=== PATIENT | female | born 1965 | race African-American/Black ===

== ENCOUNTER 2017-04-25 11:11 | Emergency (ER) | payer OTHER ==
[~2017-04-25] VITALS: Ht 165.1 cm; Wt 61.2 kg
[~2017-04-25 11:11] MED LIST: ACETAMINOPHEN-1 EAC1 ORAL; ALBUTEROL2.5 MG/3 M INH; BACITRACIN1 EACH TOPIC; BACLOFEN10 MG ORAL; FLAGYL500 MG ORAL; FLEXERIL5 MG ORAL; HYDROCODON-ACE1 EA15 ORAL; IBUPROFEN600 MG PO; KEFLEX500 MG ORAL; METRONIDAZOLE500 MG ORAL; NKM; NORCO 5-325 TA1 EACH ORAL; NORCO 5/3251 TAB ORAL; NORCO1 EA ORAL; TOPIRAMATE25 MG ORAL; VICODIN 5-5001 EACH PO
[2017-04-25 11:21] VITALS: BP 129/87
[2017-04-25] MEDS ORDERED: DEXAMETHASONE RIGHT EYE (11:38)
[2017-04-25] MEDS ORDERED: KEFLEX500 MG ORAL (11:38)
[2017-04-25] MEDS ORDERED: BACTRIM DS TAB1 EAC1 ORAL (11:38)
[2017-04-25] MEDS ORDERED: TOBRAMYCIN RIGHT EYE (11:38)
[2017-04-25 12:03] VITALS: BP 129/87
--- NOTE | 2017-04-25 14:37 | Emergency Room Report ---
History of Present Illness General Chief Complaint: General Complaint Source: Patient Present Illness HPI Patient presents emergency department today complaining of right eyelid pain and swelling and redness. Symptoms have been going on for 3-4 days. Patient states that she was using a hot compress but it did not seem to work. She is able to get into her primary care physician or sweats came here for further evaluation. She denies any visual changes. Denies any other trauma or any other complaints. Patient does not have any prior episodes.No other modifying factors. No other associated signs and symptoms. No other complaints were noted. Allergies: Uncoded Allergies: peanuts (Allergy, Mild, 07/02/13) Patient History Past Medical History: none Past Surgical History: none Pertinent Family History: none Social History: Reports: smoking Now: No : 2 Para: 1 Reviewed Nursing Documentation: PMH: Agreed, PSxH: Agreed Nursing Documentation-PMH Past Medical History: No History, Except For Hx Hypertension: No Hx Pacemaker: No Hx Asthma: No Hx COPD: No Hx Diabetes: No Hx Cancer: No Hx Gastrointestinal Problems: No - Herniorrhapy in 2007 Hx Dialysis: No Hx Cerebrovascular Accident: No Hx Seizures: No Review of Systems All Other Systems: negative except mentioned in HPI Physical Exam Vital Signs Date Time Temp Pulse Resp B/P Pulse Ox O2 Delivery O2 Flow Rate FiO2 04/25/17 11:21 98.1 75 16 129/87 100 Room Air Sp02 EP Interpretation: reviewed, normal General Appearance: normal inspection, well appearing, no apparent distress, alert Head: atraumatic Eyes: bilateral eye other - Right eyelid stye and erythema ENT: normal ENT inspection, hearing grossly normal, normal voice Neck: normal inspection, full range of motion, supple, no bony tend Respiratory: normal inspection, lungs clear, normal breath sounds, no respiratory distress, no retraction, no wheezing Cardiovascular #1: regular rate, rhythm, no edema Gastrointestinal: normal inspection, normal bowel sounds, non tender, soft, no guarding, no hernia Genitourinary: no CVA tenderness Musculoskeletal: normal inspection, back normal, normal range of motion Neurologic: normal inspection, alert, responsive, speech normal Psychiatric: normal inspection, judgement/insight normal, mood/affect normal Skin: normal inspection, normal color, no rash Medical Decision Making Diagnostic Impression: Primary Impression: Blepharitis of right upper eyelid Qualified Codes: H01.001 - Unspecified blepharitis right upper eyelid Additional Impression: Coty Qualified Codes: H00.011 - Hordeolum externum right upper eyelid ER Course Patient presents emergency department today complaining of right eye redness. Differential considerations include abscess, cellulitis, stye, and hepatitis. Patient exam is consistent with likely an infected stye. I felt the patient would benefit from continued warm compresses. Patient was given a prescription for topical tobramycin as well as oral Bactrim and Keflex. Recommend close outpatient followup and follow with ophthalmology.Patient is advised to follow up with primary doctor in 2-3 days and return the emergency room for any worsening symptoms and as needed. Last Vital Signs Date Time Temp Pulse Resp B/P Pulse Ox O2 Delivery O2 Flow Rate FiO2 04/25/17 12:03 98.1 16 129/87 100 Room Air 04/25/17 11:21 75 Status: improved Disposition: HOME, SELF-CARE Condition: Stable Scripts Cephalexin* (KEFLEX*) 500 Mg Capsule 500 MG ORAL Q6H, #28 CAP 0 Refills Prov: KADEN JIMENEZ M.D. 04/25/17 Trimethoprim/Sulfamethoxazole 160/800* (BACTRIM DS TABLET*) 1 Each Tablet 1 TAB ORAL Q12H, #14 TAB 0 Refills Prov: KADEN JIMENEZ M.D. 04/25/17 Tobramycin/Dexamethasone (Tobradex Eye Ointment) 3.5 Gm Oint...g. 1 APPLIC RIGHT EYE Q4HR for 7 Days, APPLIC Prov: KADEN JIMENEZ M.D. 04/25/17 Referrals: [facility] (PCP) Patient Instructions: Blepharitis, [id number], KADEN Delgadillo M.D. Apr 25, 2017 14:37
== END 2017-04-25 12:06 | disposition home or self-care (01) ==
LOC: EMR 11:36
DX: H01.001 Unspecified blepharitis right upper eyelid (principal); H00.011 Hordeolum externum right upper eyelid; F17.200 Nicotine dependence, unspecified, uncomplicated
CPT/HCPCS: 99284

== ENCOUNTER 2018-05-09 23:48 | Emergency (ER) | payer OTHER ==
[~2018-05-09] VITALS: Ht 162.6 cm; Wt 65.3 kg
[~2018-05-09 23:48] MED LIST changes: +BACTRIM DS TAB1 EAC1 ORAL; +DEXAMETHASONE RIGHT EYE; +TOBRAMYCIN RIGHT EYE
[2018-05-10] MEDS ORDERED: ADDERALL 10 MG10 MG ORAL (00:05)
[2018-05-10] MEDS ORDERED: ABILIFY2 MG ORAL (00:05)
[2018-05-10] MEDS ORDERED: ATIVAN1 MG ORAL (00:05)
[2018-05-10] MEDS ORDERED: Morphine Sulfate 10mg/ml Inj IV ONE (00:15)
[2018-05-10 00:57] LABS: APPEARANCE,URINE CLEAR; BILIRUBIN, URINE NEGATIVE (NEGATIVE); COLOR,URINE PALE YELLOW; GLUCOSE, URINE (UA) NEGATIVE (NEGATIVE); KETONES,URINE NEGATIVE (NEGATIVE); LEUKOCYTE ESTERASE ,URINE NEGATIVE (NEGATIVE); NITRITE,URINE NEGATIVE (NEGATIVE); PH,URINE 8 (4.5-8.0); PROTEIN,URINE NEGATIVE (NEGATIVE); UROBILINOGEN,URINE NORMAL MG/DL (0.0-1.0)
--- NOTE | 2018-05-10 01:16 | Emergency Room Report ---
History of Present Illness General Chief Complaint: Lower Back Pain or Injury Source: Patient, Medical Record, EMS Present Illness HPI This is a 53-year-old female with a history chronic back pain. She takes Soma and Garland for it. She presents with chief complaint of lower back pain. Onset for last couple days. Hard time walking. Pain is sharp in nature. No radiation. No trauma. Similar symptom in the past. No incontinence of bowel or urine. No fever or chills. No numbness. Worse with walking. Better with rest. Pain is 10 out of 10. Allergies: Uncoded Allergies: peanuts (Allergy, Mild, 07/02/13) Patient History Past Medical History: see triage record, old chart reviewed Past Surgical History: other Pertinent Family History: none Social History: Denies: smoking Now: No : 1 Para: 1 Immunizations: other Reviewed Nursing Documentation: PMH: Agreed; PSxH: Agreed Nursing Documentation-PMH Hx Hypertension: No Hx Pacemaker: No Hx Asthma: No Hx COPD: No Hx Diabetes: No Hx Cancer: No Hx Gastrointestinal Problems: No - Herniorrhapy in 2007 Hx Dialysis: No History Of Psychiatric Problem: Yes - bipolar Hx Cerebrovascular Accident: No Hx Seizures: No Review of Systems Eye: Denies: eye pain, blurred vision ENT: Denies: ear pain, nose congestion, throat swelling Respiratory: Denies: cough, shortness of breath Cardiovascular: Denies: chest pain, palpitations Gastrointestinal: Denies: abdominal pain, diarrhea, nausea, vomiting Musculoskeletal: Reports: back pain; Denies: joint pain Skin: Denies: rash Neurological: Denies: headache, numbness Endocrine: Denies: increased thirst, increased urine Hematologic/Lymphatic: Denies: easy bruising All Other Systems: negative except mentioned in HPI Physical Exam Vital Signs Date Time Temp Pulse Resp B/P (MAP) Pulse Ox O2 Delivery O2 Flow Rate FiO2 05/10/18 00:01 98.1 108 24 126/83 100 Room Air 98.1 vitals unremarkable Sp02 EP Interpretation: reviewed, normal General Appearance: well appearing, no apparent distress, alert Head: normocephalic, atraumatic Eyes: bilateral eye PERRL, bilateral eye EOMI ENT: hearing grossly normal, normal pharynx Neck: full range of motion, supple, no meningismus Respiratory: chest non-tender, lungs clear, normal breath sounds Cardiovascular #1: regular rate, rhythm, no murmur Gastrointestinal: normal bowel sounds, non tender, no mass, no organomegaly, no bruit, non-distended Musculoskeletal: back normal - pain to the lower lumbar area. No anesthesia. No percussive tenderness., gait/station normal, normal range of motion Psychiatric: mood/affect normal Skin: warm/dry Medical Decision Making Diagnostic Impression: Primary Impression: Low back pain Qualified Codes: M54.5 - Low back pain ER Course Patient present with exacerbation of chronic lower back pain. No trauma. No evidence of cauda equina syndrome, spinal epidural abscess or neoplastic process. Pain is well-controlled now after morphine. We'll discharge home. No evidence of infection. Last Vital Signs Date Time Temp Pulse Resp B/P (MAP) Pulse Ox O2 Delivery O2 Flow Rate FiO2 05/10/18 00:58 98.1 05/10/18 00:01 108 24 126/83 100 Room Air Status: improved Disposition: HOME, SELF-CARE Condition: Stable Referrals: [facility] (PCP) Patient Instructions: Back Pain, Adult Additional Instructions: Take your pain medication. Follow-up with your doctor in 7 days. Return if symptom worsen. FRANCIA COVARRUBIAS M.D. May 10, 2018 01:16
[2018-05-10 01:29] VITALS: BP 106/78
[2018-05-10 01:30] VITALS: BP 106/78
== END 2018-05-10 01:30 | disposition home or self-care (01) ==
LOC: EDBD 23:48 → EMR 23:59
DX: G89.29 Other chronic pain (principal); M54.5 Low back pain; Z91.010 Allergy to peanuts; F31.9 Bipolar disorder, unspecified
CPT/HCPCS: 80307; 81003; 96374; 99283; J2270

== ENCOUNTER 2018-08-03 00:33 | Emergency (ER) | payer OTHER ==
[~2018-08-03] VITALS: Ht 165.1 cm; Wt 64.4 kg
[~2018-08-03 00:33] MED LIST changes: +ABILIFY2 MG ORAL; +ADDERALL 10 MG10 MG ORAL; +ATIVAN1 MG ORAL
[2018-08-03] MEDS ORDERED: PHENAZOPYRIDIN200 MG ORAL (00:44)
[2018-08-03] MEDS ORDERED: CEPHALEXIN500 MG ORAL (00:44)
--- NOTE | 2018-08-03 00:44 | Emergency Room Report ---
History of Present Illness General Chief Complaint: Female Urogenital Problems Source: Patient Present Illness HPI This is a 53-year-old female with a history of chronic back pain. She presents with chief complaint of dysuria, frequency and urgency. Onset for last week. Tonight much more severe. Painful with urination. She has gone to the restroom numerous times. She called 911. Pain is 10 out of 10. Worse with urination. No radiation. No back pain. Allergies: Uncoded Allergies: peanuts (Allergy, Mild, 07/02/13) Patient History Past Medical History: see triage record, old chart reviewed Past Surgical History: other Pertinent Family History: none Social History: Denies: smoking Last Menstrual Period: unk Now: No Immunizations: other Reviewed Nursing Documentation: PMH: Agreed; PSxH: Agreed Nursing Documentation-PMH Past Medical History: No History, Except For Hx Hypertension: No Hx Pacemaker: No Hx Asthma: No Hx COPD: No Hx Diabetes: No Hx Cancer: No Hx Gastrointestinal Problems: No - Herniorrhapy in 2007 Hx Dialysis: No Hx Cerebrovascular Accident: No Hx Seizures: No Review of Systems Eye: Denies: eye pain, blurred vision ENT: Denies: ear pain, nose congestion, throat swelling Respiratory: Denies: cough, shortness of breath Cardiovascular: Denies: chest pain, palpitations Gastrointestinal: Denies: abdominal pain, diarrhea, nausea, vomiting Genitourinary: Reports: dysuria, frequency, pain, urgency Musculoskeletal: Denies: back pain, joint pain Skin: Denies: rash Neurological: Denies: headache, numbness Endocrine: Denies: increased thirst, increased urine Hematologic/Lymphatic: Denies: easy bruising All Other Systems: negative except mentioned in HPI Physical Exam Vital Signs Date Time Temp Pulse Resp B/P (MAP) Pulse Ox O2 Delivery O2 Flow Rate FiO2 08/03/18 00:34 98.1 100 16 157/96 100 Room Air 98.1 vitals normal except for high blood pressure Sp02 EP Interpretation: reviewed, normal General Appearance: well appearing, no apparent distress, alert Head: normocephalic, atraumatic Eyes: bilateral eye PERRL, bilateral eye EOMI ENT: hearing grossly normal, normal pharynx Neck: full range of motion, supple, no meningismus Respiratory: chest non-tender, lungs clear, normal breath sounds Cardiovascular #1: regular rate, rhythm, no murmur Gastrointestinal: normal bowel sounds, non tender, no mass, no organomegaly, no bruit, non-distended Musculoskeletal: back normal, gait/station normal, normal range of motion Psychiatric: mood/affect normal Skin: warm/dry Medical Decision Making Diagnostic Impression: Primary Impression: UTI (urinary tract infection) Qualified Codes: N30.00 - Acute cystitis without hematuria ER Course Patient with symptoms consistent with cystitis last UTI. No evidence of any sepsis or pyelonephritis. We'll discharge home. Last Vital Signs Date Time Temp Pulse Resp B/P (MAP) Pulse Ox O2 Delivery O2 Flow Rate FiO2 08/03/18 00:34 98.1 100 16 157/96 100 Room Air 98.1 Status: improved Disposition: HOME, SELF-CARE Condition: Stable Scripts Phenazopyridine Hcl* (PYRIDIUM*) 200 Mg Tablet 200 MG ORAL THREE TIMES A DAY, #6 TAB 0 Refills Prov: FRANCIA COVARRUBIAS M.D. 08/03/18 Cephalexin* (KEFLEX*) 500 Mg Capsule 500 MG ORAL TID, #21 CAP Prov: FRANCIA COVARRUBIAS M.D. 08/03/18 Patient Instructions: Urinary Tract Infection Additional Instructions: Follow-up with your DrCelso in 2-3 days for recheck. Return if worse. FRANCIA COVARRUBIAS M.D. Aug 03, 2018 00:44
[2018-08-03] MEDS ORDERED: Cephalexin 500mg cap ORAL ONE (00:45)
[2018-08-03] MEDS ORDERED: Norco 5mg/325mg tab ORAL ONE (00:45)
[2018-08-03] MEDS ORDERED: Phenazopyridine 200mg tab ORAL ONE (00:45)
[2018-08-03 00:55] VITALS: BP 142/94
[2018-08-03 01:00] LABS: APPEARANCE,URINE CLEAR; BILIRUBIN, URINE NEGATIVE (NEGATIVE); COLOR,URINE PALE YELLOW; GLUCOSE, URINE (UA) NEGATIVE (NEGATIVE); KETONES,URINE NEGATIVE (NEGATIVE); LEUKOCYTE ESTERASE ,URINE NEGATIVE (NEGATIVE); NITRITE,URINE NEGATIVE (NEGATIVE); PH,URINE 8 (4.5-8.0); PROTEIN,URINE NEGATIVE (NEGATIVE); UROBILINOGEN,URINE NORMAL MG/DL (0.0-1.0)
[2018-08-03 01:08] VITALS: BP 142/94
== END 2018-08-03 01:12 | disposition home or self-care (01) ==
LOC: EDUNIT# 00:33 → EDBD 00:33 → EMR 01:03
DX: N39.0 Urinary tract infection, site not specified (principal)
CPT/HCPCS: 81003; 99283

== ENCOUNTER 2018-09-09 13:02 | Emergency (ER) | payer OTHER ==
[~2018-09-09] VITALS: Ht 162.6 cm; Wt 65.8 kg
[~2018-09-09 13:02] MED LIST changes: +CEPHALEXIN500 MG ORAL; +PHENAZOPYRIDIN200 MG ORAL
[2018-09-09] MEDS ORDERED: AUGMENTIN 875-1 EAC1 ORAL (13:26)
[2018-09-09] MEDS ORDERED: TRAMADOL HCL50 MG ORAL (13:26)
--- NOTE | 2018-09-09 13:26 | Emergency Room Report ---
History of Present Illness General Chief Complaint: Toothache Source: Patient Present Illness HPI 53-year-old female patient presents ER complaining of toothache for the past 2 days. Patient reports "I think I have an abscess". Patient reports she was unable see a dentist because she has Medi-Kavin. Denies fever, chest pain, shortness of breath. Reports pain and swelling of her right side of lower gum and cheek. Denies drainage. Denies bleeding. Allergies: Uncoded Allergies: peanuts (Allergy, Mild, 07/02/13) Patient History Past Medical History: see triage record Reviewed Nursing Documentation: PMH: Agreed; PSxH: Agreed Nursing Documentation-PMH Past Medical History: No History, Except For Hx Hypertension: No Hx Pacemaker: No Hx Asthma: No Hx COPD: No Hx Diabetes: No Hx Cancer: No Hx Gastrointestinal Problems: No - Herniorrhapy in 2007 Hx Dialysis: No Hx Cerebrovascular Accident: No Hx Seizures: No Review of Systems All Other Systems: negative except mentioned in HPI Physical Exam Vital Signs Date Time Temp Pulse Resp B/P (MAP) Pulse Ox O2 Delivery O2 Flow Rate FiO2 09/09/18 13:07 98.1 86 18 139/89 98 Room Air Sp02 EP Interpretation: reviewed, normal General Appearance: well appearing, no apparent distress, alert, GCS 15, non- toxic Head: normocephalic, atraumatic, other - swelling noted over the right lower cheek and jaw Eyes: bilateral eye normal inspection, bilateral eye PERRL ENT: hearing grossly normal, normal pharynx, no angioedema, normal voice, TMs + canals normal, uvula midline, moist mucus membranes, other - right lower gum: erythema and edema, no fluctuance or induration, no palpable mass, tooth tender to palpation, decaying tooth noted Neck: full range of motion Respiratory: lungs clear, normal breath sounds, no rhonchi, no respiratory distress, no accessory muscle use, no wheezing, speaking full sentences Cardiovascular #1: regular rate, rhythm, no edema Musculoskeletal: back normal, digits/nails normal, gait/station normal, normal range of motion, non-tender Neurologic: alert, oriented x3, responsive, motor strength/tone normal, sensory intact Psychiatric: mood/affect normal Skin: no rash Medical Decision Making PA Attestation Dr. Alvarado is my supervising Physician whom patient management has been discussed with. Diagnostic Impression: Primary Impression: Tooth infection ER Course Pt. presents to the ED c/o dental pain. Ddx considered but are not limited to cellulitis, abscess, dental caries, gingivitis. Does not require imaging at this time. Vital signs: are WNL, pt. is afebrile ED INTERVENTIONS: Pain medication provided in the ER. erythema and edema noted, likely dental infection, will provide patient with antibiotics and pain medication. Nontoxic appearing, speaking full sentences, no active draining, mild edema, no trismus or vision changes. No signs of abscess, no fluctuance or induration. follow-up with dentist. vital contact information for free and low-cost dentists. Instructed patient to follow today. Patient states that "I will". Will provide abx for infection to cover for possible infection. provided with contact information for dentists. F/u with PCP and dentist for further treatment in 1-2 days. Apply ice for pain and swelling symptoms. DISCHARGE: -Rx provided for Augmentin -Rx provided for Ultram, CURES reviewed At this time pt. is stable for d/c to home. Patient is resting comfortably, in no acute distress, nontoxic appearing, talking and smiling without difficulty. Will provide printed patient care instructions and any necessary prescriptions. Care plan and follow up instructions have been discussed with the patient prior to discharge. Patient instructed to follow-up with primary care provider in 2 - 3 days. Followup with dentist. Patient questions asked and answered. Patient reports understanding and agreement to treatment plan. ER precautions given. Patient instructed to return to ER immediately for any new or worsening of symptoms including but not limited to fever, worsening of pain symptoms, worsening of erythema, red streaking. - Please note that this Emergency Department Report was dictated using [employer] commercial sales technology software, occasionally this can lead to erroneous entry secondary to interpretation by the dictation equipment. Last Vital Signs Date Time Temp Pulse Resp B/P (MAP) Pulse Ox O2 Delivery O2 Flow Rate FiO2 09/09/18 13:07 98.1 86 18 139/89 98 Room Air Status: improved Disposition: HOME, SELF-CARE Condition: Stable Scripts Tramadol Hcl* (ULTRAM*) 50 Mg Tablet 50 MG ORAL Q6H PRN for For Pain, #10 TAB 0 Refills Prov: Ike Keller P.A. 09/09/18 Amoxicillin/Potassium Clav 875-125* (AUGMENTIN 875-125 TABLET*) 1 Each Tablet 1 TAB ORAL TWICE A DAY for 7 Days, #14 TAB Prov: Ike Keller 09/09/18 Patient Instructions: Dental Pain Additional Instructions: Followup with dentist in today or tomorrow. Contact information provided for dental clinics. Followup with primary care provider in 3 -5 days. Take medications as directed. Patient questions asked and answered. ER precautions given, patient instructed to return to ER immediately for any new or worsening of symptoms. Ike Keller Sep 09, 2018 13:26
[2018-09-09] MEDS ORDERED: Ketorolac 30mg Inj IM ONE (13:30)
[2018-09-09 13:35] VITALS: BP_SYST 132; BP_SYST 139; BP_DIAS 89
== END 2018-09-09 13:35 | disposition home or self-care (01) ==
LOC: EMR 13:25
DX: K04.7 Periapical abscess without sinus (principal)
CPT/HCPCS: 96372; 99283; J1885

== ENCOUNTER 2019-01-08 14:48 | Emergency (ER) | payer OTHER ==
[~2019-01-08] VITALS: Ht 165.1 cm; Wt 68.0 kg
[~2019-01-08 14:48] MED LIST changes: +AUGMENTIN 875-1 EAC1 ORAL; +TRAMADOL HCL50 MG ORAL
[2019-01-08] MEDS ORDERED: UNOBMED (14:55)
[2019-01-08 15:05] VITALS: BP 134/89
--- NOTE | 2019-01-08 15:05 | NUR ---
ED Nurse Note: pt walked in to Ed due to pain on left lower back for 2 days. per pt, hard to urinated. denies any burning pain. AAO x4. respirations even and non-labored noted. skin warm to touch. no open wound noted. will wait for the further order.
[2019-01-08] MEDS ORDERED: HYDROcodone/Acetamin 7.5/325 tab ORAL ONE (16:00)
--- NOTE | 2019-01-08 17:03 | Diagnostic Imaging Report ---
Indication: Lumbar pain Technique: 3 views of the lumbar spine Comparison: 07/04/2013 Findings: Again demonstrated is bilateral L5 spondylolysis, better demonstrated on the previous study. There is grade 1-2 L5 on S1 spondylolysis and secondary degenerative change, also better demonstrated on the prior exam. The remainder the bony alignment is normal. Vertebral body heights are preserved. The disc spaces are preserved. The pedicles are intact. Sacral arches are preserved. Sacral iliac joint spaces are preserved. The surrounding soft tissues are unremarkable Impression: No acute process Bilateral L5 spondylolysis, L5 on S1 spondylolisthesis, also previously described
[2019-01-08] MEDS ORDERED: ROBAXIN-750750 MG PO (17:07)
[2019-01-08] MEDS ORDERED: LIDODERM700 M1 TOPIC (17:07)
--- NOTE | 2019-01-08 17:07 | Emergency Room Report ---
History of Present Illness General Chief Complaint: Back Pain-No Injury Source: Patient Present Illness HPI 53-year-old female presents to the emergency department complaining of left- sided low back pain with acute onset 2 days. Patient reports history of chronic back pain and states that she is currently under chronic pain management. Patient states that she receives spinal injections in that her last injection was 3 months ago. Patient denies fevers, chills, saddle anesthesia, urinary retention or urinary incontinence. Patient was bending over at the kitchen counter when she felt an acute onset of her symptoms with radiation down her left leg. Patient states that she continues to be ambulatory however certain movements do exacerbate her pain. Patient reports that is difficult to find any relieving factors at this time. Denies fevers, chills or history of neoplastic disease. She states that she has not been receiving any relief from her previously prescribed medications. She denies abdominal pain. Allergies: Coded Allergies: PEANUT (Verified Allergy, Unknown, 01/08/19) Uncoded Allergies: peanuts (Allergy, Mild, 07/02/13) Patient History Past Medical History: see triage record Past Surgical History: none Pertinent Family History: none Last Menstrual Period: 2016 Now: No Reviewed Nursing Documentation: PMH: Agreed; PSxH: Agreed Nursing Documentation-PMH Past Medical History: No Stated History Hx Hypertension: No Hx Pacemaker: No Hx Asthma: No Hx COPD: No Hx Diabetes: No Hx Cancer: No Hx Gastrointestinal Problems: No - Herniorrhapy in 2007 Hx Dialysis: No Hx Cerebrovascular Accident: No Hx Seizures: No Review of Systems All Other Systems: negative except mentioned in HPI Physical Exam Vital Signs Date Time Temp Pulse Resp B/P (MAP) Pulse Ox O2 Delivery O2 Flow Rate FiO2 01/08/19 14:50 98.1 92 16 134/89 96 Room Air Sp02 EP Interpretation: reviewed, normal General Appearance: alert, GCS 15, non-toxic, mild distress Head: normocephalic, atraumatic Eyes: bilateral eye normal inspection, bilateral eye PERRL ENT: hearing grossly normal, normal voice Neck: full range of motion Respiratory: lungs clear, normal breath sounds, speaking full sentences Cardiovascular #1: regular rate, rhythm Genitourinary: no CVA tenderness Musculoskeletal: back normal, gait/station normal, normal range of motion, tender - TTP in the upper Left Glut / left lumbar paraspinal musculature, no midline TTP, no step-off or obvious deformity, no signs of superficial infections. Neurologic: alert, oriented x3, responsive, motor strength/tone normal, sensory intact, normal gait, speech normal, grossly normal Psychiatric: judgement/insight normal Skin: normal color, no rash, warm/dry, well hydrated Medical Decision Making PA Attestation Dr. Burrows is my supervising Physician whom patient management has been discussed with. Diagnostic Impression: Primary Impression: Back pain Qualified Codes: M54.5 - Low back pain ER Course 53-year-old female presents to the emergency department complaining of left- sided low back pain with acute onset 2 days. Patient reports history of chronic back pain and states that she is currently under chronic pain management. Patient states that she receives spinal injections in that her last injection was 3 months ago. Patient denies fevers, chills, saddle anesthesia, urinary retention or urinary incontinence. Patient was bending over at the kitchen counter when she felt an acute onset of her symptoms with radiation down her left leg. Patient states that she continues to be ambulatory however certain movements do exacerbate her pain. Patient reports that is difficult to find any relieving factors at this time. Denies fevers, chills or history of neoplastic disease. She states that she has not been receiving any relief from her previously prescribed medications. She denies abdominal pain. Ddx considered: epidural abscess, fracture, sprain/strain, meningitis, spinal chord injury, sciatica, cauda equina, Pyelonephritis, renal calculi just to name a few. Vital signs reviewed and are WNL during ED visit. Pt. is afebrile with no signs of infection No new symptoms, and denies recent trauma. No saddle anesthesia noted, Pt. denies incontinence Neurovascular is intact ROM is limited due to pain * Mild TTP in the upper Left Glut / left lumbar paraspinal musculature, no midline TTP, no step-off or obvious deformity, no signs of superficial infections. *Pt. describes pain today as moderate and radiates across the lower back. ORDERS: none warranted at this time. INTERVENTIONS: - [place] PO -Lidoderm TP -I do not identify an emergent condition at this time. With current presentation , pt. is stable for close outpatient follow up and conservative treatment. D/ w pt. to return promptly to ED with worsening or new symptoms.- Pt. verbalizes' understanding and agreement with proposed treatment plan.proposed treatment plan. D/W Pt. that for further pain management is it recommended to consult PCP or a Chronic Pain management doctor. A provider who can safely prescribe controlled substances with close follow up. DISCHARGE: At this time pt. is stable for d/c to home. Will provide printed patient care instructions, and any necessary prescriptions. Care plan and follow up instructions have been discussed with the patient prior to discharge. Other X-Ray Diagnostic Results Other X-Ray Diagnostic Results : X-Ray ordered: L-Spine # of Views/Limited Vs Complete: 3 View Indication: Pain EP Interpretation: Yes RHIANNA Xray: Interpretation reviewed, by supervising MD, and agrees with findings. Interpretation: no dislocation, no soft tissue swelling, no fractures Impression: No acute disease Electronically Signed by: Lary Juares PA-C Last Vital Signs Date Time Temp Pulse Resp B/P (MAP) Pulse Ox O2 Delivery O2 Flow Rate FiO2 01/08/19 15:05 98.1 92 16 134/89 96 Room Air Status: improved Disposition: HOME, SELF-CARE Condition: Stable Scripts Lidocaine (Lidoderm) 1 Each Adh..patch 1 PATCH TOPIC DAILY, #30 PATCH 0 Refills Patch(es) may remain in place for up to 12 hours in any 24-hour period. Prov: Lary Juares 01/08/19 Methocarbamol* (ROBAXIN-750*) 750 Mg Tablet 750 MG PO QID, #28 TAB 0 Refills Prov: Lary Juares 01/08/19 Referrals: [facility]ERR[facility] (PCP) Patient Instructions: Back Pain, Adult Additional Instructions: Take medications as directed. Follow up with an SENIOR ART DIRECTOR in 3-5 days, even if your symptoms have resolved. If symptoms persist MRI may be required at the discretion of your PCP or Ortho Specialist. --Please review list of primary care clinics, if you do not already have a primary care provider who can give you an Orthopedic Referral. Return sooner to ED if new symptoms occur, or current symptoms become worse. Do not drink alcohol, drive, or operate heavy machinery while taking robaxin as this may cause drowsiness. - Please note that this Emergency Department Report was dictated using [employer] immigration technology software, occasionally this can lead to erroneous entry secondary to interpretation by the dictation equipment. Lary Juares Jan 08, 2019 17:07
[2019-01-08 17:17] VITALS: BP 120/94
--- NOTE | 2019-01-08 17:17 | NUR ---
ED Nurse Note: PT. AAOX4. AMBULATORY. LEFT WITH STEADY GAIT..REGARDING D/C PAPERS AND PRESCRIPTIONS. PT. VERBALIZED THE UNDERSTANDING OF THE TEACHING. ID ARMBAND REMOVED. LEFT WITH ALL BELONGINGS.
== END 2019-01-08 17:17 | disposition home or self-care (01) ==
LOC: EMR 15:22
DX: M54.5 Low back pain (principal); Z91.010 Allergy to peanuts
CPT/HCPCS: 72020; 99283

== ENCOUNTER 2019-01-20 09:23 | Emergency (ER) | payer OTHER ==
[~2019-01-20] VITALS: Ht 162.6 cm; Wt 67.1 kg
[~2019-01-20 09:23] MED LIST changes: +LIDODERM700 M1 TOPIC; +ROBAXIN-750750 MG PO; +UNOBMED
[2019-01-20 09:26] VITALS: BP 138/83
[2019-01-20] MEDS ORDERED: PERCOCET 10-321 EACH ORAL (09:30)
--- NOTE | 2019-01-20 09:33 | NUR ---
ED Nurse Note: Patient walked into ED from home c/o foul smell in the vaginal area for about a week. patient denies any discharge, itchiness or irritation on the vaginal area. patient reports frequent urination and urgency. patient is a/o x 4 ambulatory.
--- NOTE | 2019-01-20 10:07 | NUR ---
ED Nurse Note: UA/ wet mount prep sent down to lab.
[2019-01-20 10:11] LABS: APPEARANCE,URINE CLEAR; BILIRUBIN, URINE NEGATIVE (NEGATIVE); GLUCOSE, URINE (UA) NEGATIVE (NEGATIVE); KETONES,URINE NEGATIVE (NEGATIVE); LEUKOCYTE ESTERASE ,URINE 1+ (NEGATIVE); NITRITE,URINE NEGATIVE (NEGATIVE); PH,URINE 6 (4.5-8.0); PROTEIN,URINE NEGATIVE (NEGATIVE); UROBILINOGEN,URINE 1 MG/DL (0.0-1.0)
[2019-01-20 10:12] LABS: COLOR,URINE YELLOW
[2019-01-20] MEDS ORDERED: METRONIDAZOLE500 MG ORAL (11:24)
[2019-01-20] MEDS ORDERED: SUDAFED PE PRE1 EAC2 PO (11:38)
[2019-01-20] MEDS ORDERED: PROMETHAZINE-D118 ML ORAL (11:38)
[2019-01-20 11:45] VITALS: BP 138/83
--- NOTE | 2019-01-20 11:46 | NUR ---
ER DISCHARGE NOTE: Patient is cleared to be discharged per ERMD, pt is aox4, on room air, with stable vital signs. pt was given dc and prescription instructions, pt was able to verbalize understanding, pt id band removed without complications. pt is able to ambulate with steady gait. pt took all belongings. patient asked for prescriptions for her cold symptom, RN went out and notified Dr. Blanco about it. When RN went back to the room, patient was gone. RN was not able to get signature on the discharge paper because she left without signing it. RN did give prescription for metronidazole and gave instruction about it, patient verbalized understanding. Dr. Blanco prescribed some more medication: phenylephrine and d-methorphan, but patient already left the department.
--- NOTE | 2019-01-21 07:14 | Emergency Room Report ---
History of Present Illness General Chief Complaint: Female Urogenital Problems Source: Patient Present Illness HPI 53-year-old female presents ED for evaluation. Patient complaining of vaginal discharge for the last 5 days. States it is foul-smelling. Believe she has a "bacterial infection" and has been prescribed Flagyl in the past. Denies any unprotected sex recently. Denies dysuria or hematuria. Also states that for the last few months she's been having upper respiratory congestive symptoms. Notes runny nose and congestion and cough. Comes and goes. Denies fevers and chills. Denies sore throat or earache. Vaccinations up-to-date. No other aggravating relieving factors. Denies any other associated symptoms Allergies: Coded Allergies: PEANUT (Verified Allergy, Unknown, 01/08/19) Uncoded Allergies: peanuts (Allergy, Mild, 07/02/13) Patient History Past Medical History: none Past Surgical History: none Pertinent Family History: none Social History: Denies: smoking, alcohol use, drug use Now: No : 1 Immunizations: UTD Reviewed Nursing Documentation: PMH: Agreed; PSxH: Agreed Nursing Documentation-PMH Hx Hypertension: No Hx Pacemaker: No Hx Asthma: No Hx COPD: No Hx Diabetes: No Hx Cancer: No Hx Gastrointestinal Problems: No - Herniorrhapy in 2007 Hx Dialysis: No Hx Cerebrovascular Accident: No Hx Seizures: No Review of Systems All Other Systems: negative except mentioned in HPI Physical Exam Vital Signs Date Time Temp Pulse Resp B/P (MAP) Pulse Ox O2 Delivery O2 Flow Rate FiO2 01/20/19 09:26 97.3 88 22 138/83 99 Room Air Sp02 EP Interpretation: reviewed, normal General Appearance: no apparent distress, alert, GCS 15, non-toxic Head: normocephalic, atraumatic Eyes: bilateral eye normal inspection, bilateral eye PERRL ENT: hearing grossly normal, normal pharynx, no angioedema, normal voice Neck: full range of motion, supple/symm/no masses Respiratory: chest non-tender, lungs clear, normal breath sounds, speaking full sentences Cardiovascular #1: regular rate, rhythm, no edema Cardiovascular #2: 2+ carotid (R), 2+ carotid (L), 2+ radial (R), 2+ radial (L) , 2+ dorsalis pedis (R), 2+ dorsalis pedis (L) Gastrointestinal: normal bowel sounds, non tender, soft, non-distended, no guarding, no rebound Rectal: deferred Genitourinary: normal inspection, no CVA tenderness, other - organ tuner present - minimal discharge noted Musculoskeletal: back normal, gait/station normal, normal range of motion, non- tender Neurologic: alert, oriented x3, responsive, motor strength/tone normal, sensory intact, speech normal Psychiatric: judgement/insight normal, memory normal, mood/affect normal, no suicidal/homicidal ideation Reflexes: 3+ bicep (R), 3+ bicep (L), 3+ tricep (R), 3+ tricep (L), 3+ knee (R) , 3+ knee (L) Skin: normal color, no rash, warm/dry, well hydrated Lymphatic: no adenopathy Medical Decision Making Diagnostic Impression: Primary Impression: Bacterial vaginal infection ER Course Hospital Course 53-year-old female presents ED with discharge Differential diagnoses include: trichimonas, gonorrhea, chlamydia, BV Clinical course Patient placed on stretcher. After initial history physical exam reveals a female in no acute distress. Director Of Cardiology at bedside. Pelvic exam performed and wet mount collected. No CMT or adnexal tenderness. UA shows some bacteria, no signs of UTI. wet mount unremarkable Patient has no concern for STD. Is concerned about repeat bacterial infections. We will treat clinically with Flagyl Patient's upper respiratory symptoms are viral and self-limited. Patient states that she's had these symptoms for 3 months. However on further elucidation patient appears to be getting repeat episodes of upper respiratory infections with latent periods in between she recovers course his viral and self -limited. We will treat the symptoms. Safe for discharge and close outpatient follow-up. states she has a PMD Diagnosis - vaginal discharge, URI Stable and discharged home with prescriptions for Rx Flagyl. Instructed to followup with PMD. Return to ED if symptoms recur or worsen Labs Test 01/20/19 09:57 Urine Color Yellow Urine Appearance Clear Urine pH 6 (4.5-8.0) Urine Specific [place] 1.025 (1.005-1.035) Urine Protein Negative (NEGATIVE) Urine Glucose (UA) Negative (NEGATIVE) Urine Ketones Negative (NEGATIVE) Urine Blood Negative (NEGATIVE) Urine Nitrite Negative (NEGATIVE) Urine Bilirubin Negative (NEGATIVE) Urine Urobilinogen 1 MG/DL (0.0-1.0) Urine Leukocyte Esterase 1+ (NEGATIVE) Urine RBC 0-2 /HPF (0 - 2) Urine WBC 0-2 /HPF (0 - 2) Urine Squamous Epithelial Cells Occasional /LPF Urine Bacteria Occasional /HPF (NONE) Urine Mucus Few /LPF (NONE/OCC) Last Vital Signs Date Time Temp Pulse Resp B/P (MAP) Pulse Ox O2 Delivery O2 Flow Rate FiO2 01/20/19 11:45 97.3 88 22 138/83 99 Room Air Status: improved Disposition: HOME, SELF-CARE Condition: Stable Scripts D-Methorphan Hb/Prometh Hcl* (PROMETHAZINE-DM SYRUP*) 118 Ml Syrup 5 ML ORAL Q6H PRN for For Cough, #118 ML 0 Refills Prov: James Locke MD 01/20/19 Phenylephrine HCl/Acetaminophn (Sudafed PE Pressure+Pain Cplt) 1 Each Tablet 1 EACH PO Q6HR for 7 Days, TAB Prov: James Locke MD 01/20/19 Metronidazole* (FLAGYL*) 500 Mg Tablet 500 MG ORAL THREE TIMES A DAY, #21 TAB Prov: James Locke MD 01/20/19 Referrals: [facility] (PCP) Patient Instructions: Vaginitis James Locke MD Jan 21, 2019 07:13
== END 2019-01-20 11:40 | disposition home or self-care (01) ==
LOC: EMR 09:44
DX: N76.0 Acute vaginitis (principal); B96.89 Other specified bacterial agents as the cause of diseases classified elsewhere; Z91.010 Allergy to peanuts
CPT/HCPCS: 81003; 87210; 99283

== ENCOUNTER 2019-09-18 13:53 | Emergency (ER) | payer OTHER ==
[~2019-09-18] VITALS: Ht 165.1 cm; Wt 68.0 kg
[~2019-09-18 13:53] MED LIST changes: +PERCOCET 10-321 EACH ORAL; +PROMETHAZINE-D118 ML ORAL; +SUDAFED PE PRE1 EAC2 PO
[2019-09-18 14:32] VITALS: BP 147/97
[2019-09-18 14:52] LABS: APPEARANCE,URINE CLEAR; BILIRUBIN, URINE NEGATIVE (NEGATIVE); COLOR,URINE PALE YELLOW; GLUCOSE, URINE (UA) NEGATIVE (NEGATIVE); KETONES,URINE NEGATIVE (NEGATIVE); LEUKOCYTE ESTERASE ,URINE NEGATIVE (NEGATIVE); NITRITE,URINE NEGATIVE (NEGATIVE); PH,URINE 7 (4.5-8.0); PROTEIN,URINE NEGATIVE (NEGATIVE); UROBILINOGEN,URINE NORMAL MG/DL (0.0-1.0)
[2019-09-18] MEDS ORDERED: Morphine Sulfate 2mg/ml Inj(IV/IM USE ONLY) IVP ONE (16:00)
--- NOTE | 2019-09-18 16:48 | Emergency Room Report ---
History of Present Illness General Chief Complaint: Back Pain-No Injury Source: Patient Present Illness HPI 54-year-old female presents to the emergency department with 2 complaints. The first being vaginal discharge that is malodorous x1 week. Patient denies recent unprotected intercourse she denies suspicion of STI. Patient denies fevers, chills or dyspareunia. Patient denies abdominal pain or tenderness she denies urinary frequency, urgency, hematuria or dysuria. The patient second complaint is exacerbation of her chronic low back pain. Patient reports that she has been having severe pain in the lumbar spine status post surgery 6 months ago. Patient reports she had bulging disks and had fusion performed. Patient states that she is followed up several times with her spinal specialist and PCP who have only referred her to chronic pain management. Patient reports she currently takes Percocet 10 mg and her medications are not being effective anymore. Patient denies fevers, recent spinal injections, chills, neck pain/ stiffness/headache, saddle anesthesia, lower extremity motor weakness, or inability to ambulate. Patient denies trauma or fall. Patient denies acute/ sudden onset of her symptoms she states that she has been dealing with progressive back pain x6 months. She denies sciatica symptoms. Allergies: Coded Allergies: PEANUT (Verified Allergy, Unknown, 01/08/19) Uncoded Allergies: peanuts (Allergy, Mild, 07/02/13) Patient History Last Menstrual Period: no period Now: No Nursing Documentation-[facility] Past Medical History: No History, Except For Hx Cardiac Problems: No - back surgery 6 months ago. Hx Hypertension: No Hx Pacemaker: No Hx Asthma: No Hx COPD: No Hx Diabetes: No Hx Cancer: No Hx Gastrointestinal Problems: No - Herniorrhapy in 2007 Hx Dialysis: No Hx Cerebrovascular Accident: No Hx Seizures: No Review of Systems All Other Systems: negative except mentioned in HPI Physical Exam Vital Signs Date Time Temp Pulse Resp B/P (MAP) Pulse Ox O2 Delivery O2 Flow Rate FiO2 09/18/19 14:08 98.1 99 18 147/97 (114) 98 Room Air Sp02 EP Interpretation: reviewed, normal General Appearance: alert, GCS 15, non-toxic, mild distress Head: normocephalic, atraumatic Eyes: bilateral eye normal inspection, bilateral eye PERRL ENT: hearing grossly normal, normal voice Neck: full range of motion Respiratory: lungs clear, normal breath sounds, speaking full sentences Cardiovascular #1: regular rate, rhythm Gastrointestinal: normal bowel sounds, non tender, soft, non-distended, no guarding Rectal: deferred Genitourinary: normal inspection, no CVA tenderness, cervix normal, ext genitalia/vag normal, other - thick white malodorus d/c in the vaginal canal. No CMT. Musculoskeletal: gait/station normal - compensatory/ leaning forward. , normal range of motion, other - surgical scar noted midline lumbar spine. no erythema or warmth. Pt. has pain with ROM. , tender - Moderate Tenderness to palpation to paraspinal muscles of the lower back with midline tenderness Neurologic: alert, oriented x3, responsive, motor strength/tone normal, sensory intact, speech normal, grossly normal Psychiatric: judgement/insight normal Skin: no rash, normal color Lymphatic: no adenopathy Medical Decision Making PA Attestation Dr. Burrows is my supervising Physician whom patient management has been discussed with. Diagnostic Impression: Primary Impression: Back pain Qualified Codes: M54.5 - Low back pain; G89.29 - Other chronic pain Additional Impression: Vaginitis and vulvovaginitis ER Course 54-year-old female presents to the emergency department with 2 complaints. The first being vaginal discharge that is malodorous x1 week. Patient denies recent unprotected intercourse she denies suspicion of STI. Patient denies fevers, chills or dyspareunia. Patient denies abdominal pain or tenderness she denies urinary frequency, urgency, hematuria or dysuria. The patient second complaint is exacerbation of her chronic low back pain. Patient reports that she has been having severe pain in the lumbar spine status post surgery 6 months ago. Patient reports she had bulging disks and had fusion performed. Patient states that she is followed up several times with her spinal specialist and PCP who have only referred her to chronic pain management. Patient reports she currently takes Percocet 10 mg and her medications are not being effective anymore. Patient denies fevers, recent spinal injections, chills, neck pain/ stiffness/headache, saddle anesthesia, lower extremity motor weakness, or inability to ambulate. Patient denies trauma or fall. Patient denies acute/ sudden onset of her symptoms she states that she has been dealing with progressive back pain x6 months. She denies sciatica symptoms. Ddx considered: epidural abscess, fracture, sprain/strain, meningitis, spinal chord injury, sciatica, cauda equina,UTI, Pyelonephritis, renal calculi, STI, bacterial vaginosis, yeast infection, PID just to name a few. Just to name a few. Vital signs reviewed and are WNL during ED visit. Pt. is afebrile with no signs of infection No new symptoms, and denies recent trauma. No saddle anesthesia noted, Pt. denies incontinence Neurovascular is intact ROM is limited due to pain * Moderate Tenderness to palpation to paraspinal muscles of the lower back with midline tenderness. *Pt. describes pain today as significant and radiates across the lower back. ORDERS: -UA: WNL - Hcg: Negative -Wet Mount Prep: No trichomoniasis, no clue cells and no obvious yeast. INTERVENTIONS: - 4mg Morphine IM - Lidoderm TP I discussed with this patient the results of the wet mount prep however she states that she has had bacterial vaginosis in the past and is very sure that these are the same exact symptoms as she has previously experienced and is requesting treatment for BV. D/W Pt. that for further pain management is it recommended to consult PCP or a Chronic Pain management doctor. A provider who can safely prescribe controlled substances with close follow up. Pt states she has pain management appt. on Sunday. DISCHARGE: At this time pt. is stable for d/c to home. Will provide printed patient care instructions, and any necessary prescriptions. Care plan and follow up instructions have been discussed with the patient prior to discharge. Microbiology Date/Time Source Procedure Growth Status 09/18/19 15:05 Vaginal Wet Prep - Final Complete Last Vital Signs Date Time Temp Pulse Resp B/P (MAP) Pulse Ox O2 Delivery O2 Flow Rate FiO2 09/18/19 14:32 98.1 86 18 147/97 98 Room Air Disposition: HOME, SELF-CARE Condition: Stable Scripts Fluconazole (FLUCONAZOLE) 100 Mg Tablet 100 MG ORAL DAILY, #2 TAB 0 Refills Prov: Lary Juares 09/18/19 Metronidazole* (FLAGYL*) 500 Mg Tablet 500 MG ORAL BID for 7 Days, #14 TAB Prov: Lary Juares 09/18/19 Referrals: NOT CHOSEN [facility],REFERRING (PCP) Patient Instructions: Back Pain, Adult Additional Instructions: Take medications as directed. Follow up with a Primary Care Provider, VOLUNTEER SERVICES ASSISTANT, AND SPINAL SURGEON in 3-5 days, even if your symptoms have resolved. Return sooner to ED if new symptoms occur, or current symptoms become worse. Do not drink alcohol, drive, or operate heavy machinery while taking MORPHINE as this may cause drowsiness. - Please note that this Emergency Department Report was dictated using [employer] ux engineer technology software, occasionally this can lead to erroneous entry secondary to interpretation by the dictation equipment. Lary Juares Sep 18, 2019 16:48
[2019-09-18] MEDS ORDERED: FLUCONAZOLE100 MG ORAL (16:49)
[2019-09-18] MEDS ORDERED: METRONIDAZOLE500 MG ORAL (16:49)
[2019-09-18 17:03] VITALS: BP 137/88
== END 2019-09-18 17:03 | disposition home or self-care (01) ==
LOC: EMR 14:40
DX: M54.5 Low back pain (principal); G89.29 Other chronic pain; N76.0 Acute vaginitis; Z91.010 Allergy to peanuts; Z98.890 Other specified postprocedural states
CPT/HCPCS: 81003; 81025; 87210; 96374; J2270; Z7502; 99284

== ENCOUNTER 2019-12-29 11:33 | Emergency (ER) | payer OTHER ==
[~2019-12-29] VITALS: Ht 165.1 cm; Wt 66.7 kg
[~2019-12-29 11:33] MED LIST changes: +FLUCONAZOLE100 MG ORAL
[2019-12-29 11:35] VITALS: BP 122/83
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
[2019-12-29] MEDS ORDERED: Morphine Sulfate 2mg/ml Inj(IV/IM USE ONLY) IVP ONE (12:45)
[2019-12-29] MEDS ORDERED: Ketorolac 30mg Inj IM ONE (12:45)
--- NOTE | 2019-12-29 14:33 | Diagnostic Imaging Report ---
. Indication: Pain, trauma Technique: 3 views of the lumbar spine Comparison: 01/08/2019 Findings: Interim posterior fusion surgery with placement of disc spacers involving L4, L5, and S1. There is slight anterior offset of L3 on L4 and of L5 on S1. The remaining bony alignment is normal. Vertebral body heights are preserved. The disc spaces are preserved. No acute fractures. No dislocations. The pedicles are intact. Sacral arches are preserved. Sacroiliac joint spaces are preserved Impression: Postsurgical changes, as described No definite acute bony trauma
--- NOTE | 2019-12-29 14:34 | Diagnostic Imaging Report ---
Indications:Elbow pain, trauma Technique: Three or 4 views of the right elbow Comparison: None Findings: No acute fractures. No dislocations. The joint spaces are preserved Impression: Negative
[2019-12-29 14:51] VITALS: BP 128/76
--- NOTE | 2019-12-29 14:51 | NUR ---
ER DISCHARGE NOTE: Patient is cleared to be discharged per ERMD, pt is aox4, on room air, with stable vital signs. pt was given dc and prescription instructions, pt was able to verbalize understanding, pt id band removed. pt is able to ambulate with steady gait. pt took all belongings.
== END 2019-12-29 14:52 | disposition home or self-care (01) ==
LOC: EMR 12:13
DX: M54.5 Low back pain (principal); S50.01XA Contusion of right elbow, initial encounter; Y04.2XXA Assault by strike against or bumped into by another person, initial encounter; Y92.9 Unspecified place or not applicable; M51.36 Other intervertebral disc degeneration, lumbar region; Z98.1 Arthrodesis status; Z91.010 Allergy to peanuts
CPT/HCPCS: 72020; 73080; 96372; 96374; J1885; J2270; Z7502; 99284

== ENCOUNTER 2020-02-25 12:40 | Emergency (ER) | payer OTHER ==
[~2020-02-25] VITALS: Ht 165.1 cm; Wt 63.5 kg
--- NOTE | 2020-02-25 13:14 | NUR ---
ED Nurse Note: pt to brp to obtain urine sample. pt relates dysuria as in triage. nno fevers.
[2020-02-25 13:26] LABS: APPEARANCE,URINE CLOUDY; BILIRUBIN, URINE 1+ (NEGATIVE); COLOR,URINE YELLOW; GLUCOSE, URINE (UA) NEGATIVE (NEGATIVE); KETONES,URINE 1+ (NEGATIVE); LEUKOCYTE ESTERASE ,URINE 1+ (NEGATIVE); NITRITE,URINE NEGATIVE (NEGATIVE); PH,URINE 6.5 (4.5-8.0); PROTEIN,URINE 2+ (NEGATIVE); UROBILINOGEN,URINE 1 MG/DL (0.0-1.0)
--- NOTE | 2020-02-25 13:46 | Emergency Room Report ---
History of Present Illness General Chief Complaint: Female Urogenital Problems Source: Patient, Medical Record Present Illness HPI 54-year-old female with no significant past medical history here complaining of few days of urinary frequency and urgency. Denies being sexually active, denies any vaginal discharge. Denies fever and chills, flank pain, nausea vomiting, diarrhea, constipation, chest pain shortness of breath. Denies cough or congestion. Also complains of 2 days of right-sided tooth pain with swelling of the right mandible. Rates pain 10/10 without radiation per denies any tingling or numbness of the face. Has not taken medication for symptom relief. Allergies: Coded Allergies: PEANUT (Verified Allergy, Unknown, 01/08/19) Uncoded Allergies: peanuts (Allergy, Mild, 07/02/13) COVID-19 Screening Contact w/high risk pt: No Recent Travel to affected area: No Experienced COVID-19 symptoms?: No Patient History Past Medical History: see triage record Past Surgical History: none Pertinent Family History: none Now: No Immunizations: UTD Reviewed Nursing Documentation: PMH: Agreed; PSxH: Agreed Nursing Documentation-PMH Past Medical History: No History, Except For Hx Cardiac Problems: No - back surgery 6 months ago. Hx Hypertension: No Hx Pacemaker: No Hx Asthma: No Hx COPD: No Hx Diabetes: No Hx Cancer: No Hx Gastrointestinal Problems: No - Herniorrhapy in 2007 Hx Dialysis: No Hx Cerebrovascular Accident: No Hx Seizures: No Review of Systems All Other Systems: negative except mentioned in HPI Physical Exam Vital Signs Date Time Temp Pulse Resp B/P (MAP) Pulse Ox O2 Delivery O2 Flow Rate FiO2 02/25/20 12:47 98.4 97 15 161/93 (115) 98 Room Air Sp02 EP Interpretation: reviewed, normal General Appearance: no apparent distress, alert, GCS 15, non-toxic Head: normocephalic, atraumatic Eyes: bilateral eye normal inspection, bilateral eye PERRL ENT: hearing grossly normal, normal pharynx, no angioedema, normal voice, other - Infection of the right lower molar with swelling of the right mandible Neck: full range of motion, supple/symm/no masses Respiratory: chest non-tender, lungs clear, normal breath sounds, speaking full sentences Cardiovascular #1: regular rate, rhythm, no edema Gastrointestinal: non tender, soft Rectal: deferred Genitourinary: no CVA tenderness Musculoskeletal: back normal Neurologic: alert, motor strength/tone normal, oriented x3, sensory intact, responsive, speech normal Psychiatric: judgement/insight normal, memory normal, mood/affect normal, no suicidal/homicidal ideation Skin: no rash Lymphatic: no adenopathy Medical Decision Making PA Attestation All my diagnosis and treatment plans were reviewed ad discussed with my supervising physician Dr. Locke Diagnostic Impression: Primary Impression: Dental abscess Additional Impression: UTI (urinary tract infection) ER Course 54-year-old female with no significant past medical history here complaining of few days of urinary frequency and urgency. Denies being sexually active, denies any vaginal discharge. Denies fever and chills, flank pain, nausea vomiting, diarrhea, constipation, chest pain shortness of breath. Denies cough or congestion. Also complains of 2 days of right-sided tooth pain with swelling of the right mandible. Rates pain 10/10 without radiation per denies any tingling or numbness of the face. Has not taken medication for symptom relief. Ddx considered but are not limited to: UTI, pyelonephritis, urinary incontinence , prolapsed bladder, dental abscess, dental pain Vital signs: are WNL, pt. is afebrile H&PE are most consistent with: Possible dental abscess, UTI ORDERS: UA, urine cx, Macrobid, clindamycin, ibuprofen, lidocaine viscous ED INTERVENTIONS: None required at this time. DISCHARGE: At this time pt. is stable for d/c to home. Will provide printed patient care instructions, and any necessary prescriptions. Care plan and follow up instructions have been discussed with the patient prior to discharge. Patient. To be treated with 2 different antibiotics to target both tooth abscess as well as UTI. Also gave a list of dentist to follow-up with, if worsening symptoms return to emergency room. Last Vital Signs Date Time Temp Pulse Resp B/P (MAP) Pulse Ox O2 Delivery O2 Flow Rate FiO2 02/25/20 12:47 98.4 97 15 161/93 (115) 98 Room Air Disposition: HOME, SELF-CARE Condition: Stable Scripts Nitrofurantoin Monohyd/M-Cryst* (MACROBID 100 MG*) 100 Mg Capsule 100 MG ORAL EVERY 12 HOURS for 7 Days, #14 CAP Prov: Reyna Martinez 02/25/20 Lidocaine HCl 2% Viscous (Lidocaine HCl 2% Viscous) 100 Ml Solution 15 ML ORAL QID, #120 ML Prov: Reyna Martinez 02/25/20 Ibuprofen* (MOTRIN*) 600 Mg Tablet 600 MG ORAL Q6H PRN for For Pain, #30 TAB 0 Refills Prov: Reyna Martinez 02/25/20 Clindamycin Hcl* (CLINDAMYCIN HCL*) 150 Mg Capsule 300 MG ORAL FOUR TIMES A DAY for 7 Days, #28 CAP Prov: Reyna Martinez 02/25/20 Patient Instructions: Dental Abscess, [id number], Urinary Tract Infection Additional Instructions: Take medication as directed, follow-up with your dentist, if worsening symptoms return to the emergency room. Reyna Martinez Feb 25, 2020 13:46
[2020-02-25] MEDS ORDERED: NITROFURANTOIN100 M2 ORAL (13:48)
[2020-02-25] MEDS ORDERED: LIDOCAINE VISC100 ML ORAL (13:48)
[2020-02-25] MEDS ORDERED: IBUPROFEN600 M1 ORAL (13:48)
[2020-02-25] MEDS ORDERED: CLINDAMYCIN HC150 MG ORAL (13:48)
[2020-02-25 13:49] VITALS: BP 161/93
[2020-02-25 13:55] VITALS: BP 161/93
--- NOTE | 2020-02-25 13:55 | NUR ---
ED Nurse Note: Pt cleared by health care Provider for discharge. DC instructions/prescription was given and explained to pt and verbalized understanding of teachings. All medical devices such as ID band removed. Pt is AAO x4, ambulatory and left with all personal belongings.
== END 2020-02-25 13:55 | disposition home or self-care (01) ==
LOC: EMR 13:10
DX: N39.0 Urinary tract infection, site not specified (principal); K00.0 Anodontia; Z91.010 Allergy to peanuts
CPT/HCPCS: 81003; Z7502; 99282

== ENCOUNTER 2020-03-25 12:48 | Emergency (ER) | payer OTHER ==
[~2020-03-25] VITALS: Ht 165.1 cm; Wt 63.5 kg
[~2020-03-25 12:48] MED LIST changes: +CLINDAMYCIN HC150 MG ORAL; +IBUPROFEN600 M1 ORAL; +LIDOCAINE VISC100 ML ORAL; +NITROFURANTOIN100 M2 ORAL
[2020-03-25 12:59] VITALS: BP 153/89
--- NOTE | 2020-03-25 13:30 | Emergency Room Report ---
History of Present Illness General Chief Complaint: Female Urogenital Problems Source: Patient Present Illness HPI 54-year-old female presents with suprapubic pressure, urinary frequency and urgency for 3 days. She denies any dysuria, hematuria, fever, flank pain, vomiting. She denies any vaginal pain, discharge, itching. Patient reports she gets recurrent UTIs and took antibiotics 1 month ago. Allergies: Coded Allergies: PEANUT (Verified Allergy, Unknown, 01/08/19) Uncoded Allergies: peanuts (Allergy, Mild, 07/02/13) COVID-19 Screening Contact w/high risk pt: No Recent Travel to affected area: No Experienced COVID-19 symptoms?: No COVID-19 Testing performed DOCKING PILOT: No Patient History Past Medical History: see triage record Now: No Reviewed Nursing Documentation: PMH: Agreed; PSxH: Agreed Nursing Documentation-PMH Hx Cardiac Problems: No - back surgery 6 months ago. Hx Hypertension: No Hx Pacemaker: No Hx Asthma: No Hx COPD: No Hx Diabetes: No Hx Cancer: No Hx Gastrointestinal Problems: No - Herniorrhapy in 2007 Hx Dialysis: No Hx Cerebrovascular Accident: No Hx Seizures: No Review of Systems All Other Systems: negative except mentioned in HPI Physical Exam Vital Signs Date Time Temp Pulse Resp B/P (MAP) Pulse Ox O2 Delivery O2 Flow Rate FiO2 03/25/20 12:52 98.2 87 19 153/89 (110) 100 Room Air Sp02 EP Interpretation: reviewed, normal General Appearance: normal inspection, well appearing, no apparent distress, alert, GCS 15, non-toxic ENT: EOM grossly intact, normal pharynx, normal voice, TMs + canals normal, uvula midline Neck: normal inspection, full range of motion, supple, thyroid normal, no meningismus, no bony tend Respiratory: chest non-tender, lungs clear, normal breath sounds, no respiratory distress Cardiovascular #1: normal peripheral pulses, regular rate, rhythm Gastrointestinal: normal inspection, normal bowel sounds, non tender, soft, no mass, no organomegaly, no guarding, no rebound Genitourinary: no CVA tenderness Musculoskeletal: normal inspection, normal range of motion, no calf tenderness , gait/station normal, non-tender Neurologic: alert, motor strength/tone normal, hand ornament maker III-XII nml as tested, oriented x3, sensory intact, speech normal Psychiatric: judgement/insight normal, mood/affect normal Skin: no rash, normal color, warm/dry Lymphatic: no adenopathy Medical Decision Making PA Attestation Dr. Colindres is my supervising physician whom patient management and care has been discussed with. Diagnostic Impression: Primary Impression: UTI (urinary tract infection) Qualified Codes: N39.0 - Urinary tract infection, site not specified ER Course Pt. presents to the ED c/o suprapubic pressure and urinary frequency for 3 days. Ddx considered but are not limited to UTI, pyelonephritis, nephrolithiasis, appendicitis, diverticulitis. Vital signs: are WNL, pt. is afebrile H&PE are most consistent with UTI ORDERS: Urinalysis shows evidence of UTI. Urine culture sent. ED INTERVENTIONS: Rx Keflex DISCHARGE: At this time pt. is stable for d/c to home. Will provide printed patient care instructions, and prescription for Keflex. Advised to follow up outpatient in 1-2 days. Care plan and follow up instructions have been discussed with the patient prior to discharge. Laboratory Tests Test 03/25/20 13:03 Urine Color Yellow Urine Appearance Clear Urine pH 7 (4.5-8.0) Urine Specific [place] 1.010 (1.005-1.035) Urine Protein 1+ (NEGATIVE) H Urine Glucose (UA) Negative (NEGATIVE) Urine Ketones 1+ (NEGATIVE) H Urine Blood Negative (NEGATIVE) Urine Nitrite Negative (NEGATIVE) Urine Bilirubin 1+ (NEGATIVE) H Urine Ictotest Negative (NEGATIVE) Urine Urobilinogen 1 MG/DL (0.0-1.0) H Urine Leukocyte Esterase 1+ (NEGATIVE) H Urine RBC 0-2 /HPF (0 - 2) Urine WBC 2-4 /HPF (0 - 2) Urine Squamous Epithelial Cells Few /LPF (NONE/OCC) Urine Bacteria Few /HPF (NONE) Urine Mucus Few /LPF (NONE/OCC) H Last Vital Signs Date Time Temp Pulse Resp B/P (MAP) Pulse Ox O2 Delivery O2 Flow Rate FiO2 03/25/20 12:59 98.2 87 19 153/89 100 Room Air Disposition: HOME, SELF-CARE Condition: Stable Scripts Cephalexin* (KEFLEX*) 500 Mg Capsule 500 MG ORAL EVERY 6 HOURS, #28 CAP Prov: Carisa Nava N. P.A. 03/25/20 Carisa Nava March 25, 2020 13:30
[2020-03-25 13:35] LABS: APPEARANCE,URINE CLEAR; BILIRUBIN, URINE 1+ (NEGATIVE); GLUCOSE, URINE (UA) NEGATIVE (NEGATIVE); KETONES,URINE 1+ (NEGATIVE); LEUKOCYTE ESTERASE ,URINE 1+ (NEGATIVE); NITRITE,URINE NEGATIVE (NEGATIVE); PH,URINE 7 (4.5-8.0); PROTEIN,URINE 1+ (NEGATIVE); UROBILINOGEN,URINE 1 MG/DL (0.0-1.0)
[2020-03-25 13:39] LABS: COLOR,URINE YELLOW
[2020-03-25] MEDS ORDERED: CEPHALEXIN500 MG ORAL (13:53)
[2020-03-25 14:00] VITALS: BP 153/89
== END 2020-03-25 14:00 | disposition home or self-care (01) ==
LOC: EMR 13:37
DX: N39.0 Urinary tract infection, site not specified (principal); Z91.010 Allergy to peanuts; Z98.890 Other specified postprocedural states
CPT/HCPCS: 81003; 87086; Z7502; 99282

== ENCOUNTER 2021-01-05 11:27 | Emergency (ER) | payer OTHER ==
[~2021-01-05] VITALS: Ht 162.6 cm; Wt 67.6 kg
[2021-01-05 11:38] VITALS: BP 140/94
[2021-01-05 12:13] LABS: APPEARANCE,URINE CLEAR; BILIRUBIN, URINE NEGATIVE (NEGATIVE); GLUCOSE, URINE (UA) NEGATIVE (NEGATIVE); KETONES,URINE NEGATIVE (NEGATIVE); LEUKOCYTE ESTERASE ,URINE NEGATIVE (NEGATIVE); NITRITE,URINE NEGATIVE (NEGATIVE); PH,URINE 7 (4.5-8.0); PROTEIN,URINE NEGATIVE (NEGATIVE); UROBILINOGEN,URINE NORMAL MG/DL (0.0-1.0)
[2021-01-05 12:14] LABS: COLOR,URINE PALE YELLOW
--- NOTE | 2021-01-05 13:11 | NUR ---
Patient present to the ER with c/o brownish vaginal discharge x 1 week.
--- NOTE | 2021-01-05 14:04 | Emergency Room Report ---
History of Present Illness General Chief Complaint: Vaginal Source: Patient Present Illness HPI Patient presents with a brownish vaginal discharge. She denies any abdominal pain. There is no dysuria. She has had bacterial vaginosis in the past and believes this might be the case although the discharge is slightly different. She is postmenopausal at this time. There is no active bleeding. Patient denies fevers or chills. There is no abdominal pain. Patient denies exposure to Covid positive contacts. Allergies: Coded Allergies: PEANUT (Verified Allergy, Unknown, 01/08/19) Uncoded Allergies: peanuts (Allergy, Mild, 07/02/13) COVID-19 Screening Contact w/high risk pt: No Recent Travel to affected area: No Experienced COVID-19 symptoms?: No COVID-19 Testing performed CLUTCH SPECIALIST: Yes COVID-19 Screening: Negative COVID-19 COVID-19 Testing Source: md Patient History Past Medical History: see triage record Past Surgical History: other - Back surgery and herniorrhaphy Social History: Reports: smoking Social History Narrative Disabled Last Menstrual Period: 5 years Now: No Reviewed Nursing Documentation: PMH: Agreed; PSxH: Agreed Nursing Documentation-PMH Past Medical History: No History, Except For Hx Cardiac Problems: No - back surgery 6 months ago. Hx Hypertension: No Hx Pacemaker: No Hx Asthma: No Hx COPD: No Hx Diabetes: No Hx Cancer: No Hx Gastrointestinal Problems: No - Herniorrhapy in 2007 Hx Dialysis: No Hx Cerebrovascular Accident: No Hx Seizures: No Review of Systems Constitutional: Reports: see HPI Respiratory: Denies: cough Gastrointestinal: Reports: see HPI Genitourinary: Reports: see HPI Skin: Denies: rash Hematologic/Lymphatic: Reports: see HPI Physical Exam Vital Signs Date Time Temp Pulse Resp B/P (MAP) Pulse Ox O2 Delivery O2 Flow Rate FiO2 01/05/21 11:38 98.2 97 20 140/94 (109) 99 Room Air Sp02 EP Interpretation: reviewed, normal General Appearance: well appearing, no apparent distress, GCS 15 Head: normocephalic Eyes: bilateral eye normal inspection, bilateral eye PERRL ENT: other - Wearing a mask Neck: normal inspection Respiratory: normal inspection Cardiovascular #1: regular rate, rhythm Cardiovascular #2: 2+ radial (R) Gastrointestinal: normal inspection Genitourinary: os closed, other - Cystocele, patient is brown discharge, no vaginal inflammation Musculoskeletal: gait/station normal Neurologic: alert, grossly normal Psychiatric: mood/affect normal Skin: normal color, no rash, warm/dry Medical Decision Making Diagnostic Impression: Primary Impression: Bacterial vaginal infection ER Course Patient presents with vaginal discharge without dysuria. Differential includes bacterial vaginosis, yeast amongst others. Pelvic exam performed for obtaining sample as there was not enough just with using swabs. Wet mount unremarkable. However our lab has false negatives. Urinalysis clear. Based on the character and appearance of the discharge treatment was initiated. Treatment plan discussed with patient. Patient stable for outpatient observation and treatment. Laboratory Tests Test 01/05/21 11:40 Urine Color Pale yellow Urine Appearance Clear Urine pH 7 (4.5-8.0) Urine Specific [place] 1.010 (1.005-1.035) Urine Protein Negative (NEGATIVE) Urine Glucose (UA) Negative (NEGATIVE) Urine Ketones Negative (NEGATIVE) Urine Blood 1+ (NEGATIVE) H Urine Nitrite Negative (NEGATIVE) Urine Bilirubin Negative (NEGATIVE) Urine Urobilinogen Normal MG/DL (0.0-1.0) Urine Leukocyte Esterase Negative (NEGATIVE) Urine RBC 0-2 /HPF (0 - 2) Urine WBC 0-2 /HPF (0 - 2) Urine Squamous Epithelial Cells Occasional /LPF Urine Bacteria Occasional /HPF (NONE) Microbiology Date/Time Source Procedure Growth Status 01/05/21 13:01 Vaginal Wet Prep - Final Complete Last Vital Signs Date Time Temp Pulse Resp B/P (MAP) Pulse Ox O2 Delivery O2 Flow Rate FiO2 01/05/21 13:01 Room Air 01/05/21 11:38 98.2 97 20 140/94 (109) 99 Status: unchanged Disposition: HOME, SELF-CARE Condition: Stable Scripts Clotrimazole (GYNE-LOTRIMIN*) 45 Gm Cream.appl 1 APPLIC VG QHS, #45 GM 0 Refills Prov: Erick Alvarado MD 01/05/21 Metronidazole* (FLAGYL*) 500 Mg Tablet 500 MG ORAL BID, #14 TAB Prov: Erick Alvarado MD 01/05/21 Referrals: [facility],REFERRING (PCP) Erick Alvarado MD Jan 05, 2021 14:04
[2021-01-05] MEDS ORDERED: METRONIDAZOLE500 MG ORAL (14:06)
[2021-01-05] MEDS ORDERED: GYNE-LOTRIMIN45 GM VG (14:06)
== END 2021-01-05 14:13 | disposition home or self-care (01) ==
LOC: EMR 12:05
DX: N76.0 Acute vaginitis (principal); F17.200 Nicotine dependence, unspecified, uncomplicated; Z91.010 Allergy to peanuts; Z98.890 Other specified postprocedural states
CPT/HCPCS: 81003; 87210; Z7502; 99283